=== PATIENT | male | born 1935 | race Caucasian/White ===

== ENCOUNTER 2018-02-09 11:51 | Emergency (ER) | payer MEDICARE, BC ==
[~2018-02-09] VITALS: Ht 177.8 cm; Wt 86.4 kg
[~2018-02-09 11:51] MED LIST: ASPI-611 PO; AZIL40TA PO; LEVO750T46 PO; METO25TA6 PO
[2018-02-09] MEDS ORDERED: diltiazem 5mg/ml 5ml inj. IV ONE (12:40)
[2018-02-09 12:53] VITALS: BP 83/61
[2018-02-09 13:18] LABS: BASOPHILS % (AUTO) 0 % (0-1); EOSINOPHILS # (AUTO) 0.1 X10'3 (0-0.9); EOSINOPHILS % (AUTO) 1.2 % (0-6); HEMATOCRIT 36.8 % (42.0-52.0); HEMOGLOBIN 12.4 g/dl (14.0-17.9); LYMPHOCYTES # (AUTO) 0.8 X10'3 (1.1-4.8); LYMPHOCYTES % (AUTO) 9.5 % (21-51); MEAN CORPUSCULAR HEMOGLOBIN 31.5 PG (27.0-31.0); MEAN CORPUSCULAR HGB CONC 33.6 % (33.0-36.5); MEAN CORPUSCULAR VOLUME 93.8 FL (78-98); MEAN PLATELET VOLUME 8.6 FL (7.4-10.4); MONOCYTES # (AUTO) 0.7 X10'3 (0-0.9); MONOCYTES % (AUTO) 8.6 % (2-12); NEUTROPHILS # (AUTO) 6.8 X10'3 (1.8-7.7); NEUTROPHILS % (AUTO) 80.7 % (42-75); PLATELET COUNT 205 X10'3 (140-440); RED BLOOD COUNT 3.93 X10'6 (4.70-6.10); RED CELL DISTRIBUTION WIDTH 13.9 % (11.5-14.5); WHITE BLOOD COUNT 8.4 X10'3 (4.5-11.0)
[2018-02-09 13:28] LABS: ALANINE AMINOTRANSFERASE 21 U/L (12-78); ALBUMIN 3.4 G/DL (3.4-5.0); ALBUMIN/GLOBULIN RATIO 1.2 (1.1-1.5); ALKALINE PHOSPHATASE 62 IU/L (46-116); ANION GAP 9 (8-16); ASPARTATE AMINO TRANSFERASE 9 U/L (10-37); BILIRUBIN,TOTAL 0.4 MG/DL (0.1-1.0); BLOOD UREA NITROGEN 12 MG/DL (7-18); BUN/CREATININE RATIO 13.3 (5.4-32.0); CALCIUM 9.1 MG/DL (8.5-10.1); CHLORIDE 99 MMOL/L (99-107); GLUCOSE 141 MG/DL (70-104); MAGNESIUM 2.2 MG/DL (1.5-2.4); POTASSIUM 4.2 MMOL/L (3.5-5.1); SODIUM 136 MMOL/L (135-145); TOTAL CARBON DIOXIDE 27.9 MMOL/L (24-32); TOTAL PROTEIN 6.2 G/DL (6.4-8.2); eGFR 81 ML/MIN
[2018-02-09] MEDS ORDERED: DILT30TA34 PO (13:43)
== END 2018-02-09 14:14 | disposition home or self-care (01) ==
LOC: ER 11:52
DX: I48.92 Unspecified atrial flutter (principal); I10 Essential (primary) hypertension; Z79.82 Long term (current) use of aspirin; Z79.899 Other long term (current) drug therapy
CPT/HCPCS: 36415; 80053; 83735; 85025; 93005; 96374; 99284; J3490

== ENCOUNTER 2024-07-11 09:30 | Day surgery (SDC) | payer MEDICARE, BC ==
[~2024-07-11] VITALS: Ht 180.3 cm; Wt 93.2 kg
[~2024-07-11 09:30] MED LIST changes: +APIX5TAB3 PO; -ASPI-611 PO; +ATRNS BOTHNARES; +AZEL137S4 BOTHNARES; +CHOL12509; +FLAX100032 PO; +FLUCONAZOLE NASAL; -LEVO750T46 PO; +METO-395 PO; -METO25TA6 PO; +MULT-1085 PO; +POTASSIUM PO; +PROP225C24 PO; +SODI1TAB2 PO; +TERA10CA4 PO; +TEST75GE10 TOP; +ZINC220T3 PO
[2024-07-11 10:59] VITALS: BP 165/66; PULSE 54; RESP 11
[2024-07-11] MEDS ORDERED: ringers solution, lacted 1,000 ML IV SCH (11:35)
[2024-07-11] MEDS ORDERED: meperidine/PF 25mg/ml syringe IV PRN (11:35)
[2024-07-11] MEDS ORDERED: ondansetron/PF 4mg/2ml inj IV PRN (11:35)
[2024-07-11] MEDS ORDERED: HYDROmorphone/PF 0.2 MG/ML SYRINGE IV PRN (11:35)
[2024-07-11] MEDS ORDERED: proCHLORperazine 10 MG/2 ml inj IV PRN (11:35)
[2024-07-11] MEDS ORDERED: morphine 2 MG/ML inj. syringe IV PRN (11:35)
[2024-07-11] MEDS ORDERED: acetaminophen 1,000mg/100ml IV 100 ML IV PRN (11:35)
[2024-07-11] MEDS ORDERED: propofol inj 20 ML IV ONE (12:44)
[2024-07-11 12:55] VITALS: BP 124/54; PULSE 54; RESP 12; O2SAT 100
[2024-07-11 13:05] VITALS: BP 152/65; PULSE 53; RESP 16; O2SAT 100
[2024-07-11 13:13] VITALS: BP 152/69; PULSE 54; RESP 14; O2SAT 100
[2024-07-11 13:25] VITALS: BP 154/66; PULSE 54; RESP 12; O2SAT 98
[2024-07-11 13:35] VITALS: BP 158/74; PULSE 11; RESP 11; O2SAT 98
== END 2024-07-11 13:45 | disposition home or self-care (01) ==
LOC: GI LAB 09:30
PROVIDERS: ATTEND Internal Medicine Gastroenterology
DX: K92.2 Gastrointestinal hemorrhage, unspecified (principal); K73.0 Chronic persistent hepatitis, not elsewhere classified; K64.0 First degree hemorrhoids; I48.92 Unspecified atrial flutter; Z87.891 Personal history of nicotine dependence; Z79.899 Other long term (current) drug therapy; Z98.890 Other specified postprocedural states
CPT/HCPCS: 45378; A4620; J0131; J0780; J1171; J2175; J2270; J2405; J2704; J7120; Z7512

== ENCOUNTER 2024-08-22 07:32 | Day surgery (SDC) | payer MEDICARE, BC ==
[2024-08-22] VITALS (12 sets, daily range): BP systolic 116–149; BP diastolic 45–71; PULSE 49–59; RESP 10–16; O2SAT 96–99
[~2024-08-22] VITALS: Ht 180.3 cm; Wt 93.2 kg
[2024-08-22] MEDS ORDERED: fentaNYL/PF 50MCG/1 ML 2ML syringe ONE (08:49)
[2024-08-22] MEDS ORDERED: propofol 10mg/ml 20ml vial IV ONE (08:55)
[2024-08-22] MEDS ORDERED: simethicone 40mg/0.6ml oral drops 30ml ONE (08:55)
--- NOTE | 2024-08-23 12:05 | PATHOLOGY REPORT ---
[facility] [address] [place] [address] SURGICAL PATHOLOGY REPORT CaseNumber: [id number] Surgeon:Victor Manuel Segal D.O. CLINICAL INFORMATION CLINICAL INFORMATION: Iron deficiency anemia secondary to chronic blood loss. DIAGNOSIS DIAGNOSIS: GASTRIC MUCOSA, BIOPSIES X 3 - NO SIGNIFICANT INFLAMMATION, EDEMA, OR VASCULAR CONGESTION - NO INTESTINAL METAPLASIA - NO DYSPLASIA OR MALIGNANCY MICROSCOPIC DESCRIPTION MICROSCOPIC DESCRIPTION: Reviewed is a single H&E-stained slide showing serial sections and levels of three fragments of gastric mucosa. There is no significant inflammation, edema, or vascular congesti on. There is no intestinal metaplasia. There are no dysplastic or neoplastic features. GROSS DESCRIPTION GROSS DESCRIPTION: Received in a container of formalin labeled with the patient's name, number, and " gastric biopsy" are 3 pieces of azar tissue 0.4 -0.5 cm. The specimen is entirely submitted as A1. The time at which the specimen was removed was 0859. The time at which the specimen was placed in formal in was 0 900. Electronically signed by: Deo Garcia M.D. 08/23/2024 11:38:00 AM
== END 2024-08-22 10:15 | disposition home or self-care (01) ==
LOC: GI LAB 07:32
PROVIDERS: ATTEND Internal Medicine Gastroenterology
DX: D50.0 Iron deficiency anemia secondary to blood loss (chronic) (principal); K29.70 Gastritis, unspecified, without bleeding; I48.91 Unspecified atrial fibrillation; I48.92 Unspecified atrial flutter; Z79.899 Other long term (current) drug therapy
CPT/HCPCS: 43239; J2704; J3010; J7030; Z7512; 99153